=== PATIENT | female | born 1960 | race Caucasian/White ===

== ENCOUNTER 2023-10-16 00:57 | Emergency (ER) | payer OTHER, SELFPAY ==
[2023-10-16] VITALS (10 sets, daily range): BP systolic 111–134; BP diastolic 55–83; PULSE 67–89; RESP 18–28; TEMP 36.2–36.9; O2SAT 91–97; BMI 28.3
--- NOTE | 2023-10-16 01:02 | EKG_ITS ---
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
--- NOTE | 2023-10-16 01:03 | ED.CHESTPAIN ---
HPI - Chest Pain General Chief Complaint: Chest Pain Stated Complaint: CP x2hrs Time Seen by Provider: 10/16/23 00:57 History of Present Illness HPI narrative: 63-year-old female with PMH CAD s/p stent 2021 presents by EMS from home for central chest tightness for 2 hours. EMS states that patient had some alcoholic drinks and marijuana with her sister around dinner, subsequently went to bed. Shortly after patient began to experience midepigastric pain with several episdoes of vomiting and chest tightness. They state that when they arrived the patient was not very coherent and may possibly have had a [facility]opal [facility] EN route they gave 324 of aspirin, 50 mcg of fentanyl, and 1 sublingual nitroglycerin. Patient complaining of central substernal chest tightness on arrival to the emergency department. Patient History Social History Smoking Status: Current every day smoker Exam Initial Vital Signs Initial Vital Signs: Vital Signs Pulse Rate 75 10/16/23 01:02 Respiratory Rate 28 H 10/16/23 01:02 Blood Pressure 131/63 10/16/23 01:02 Pulse Oximetry 93 10/16/23 01:02 Const: Awake, alert, nontoxic appearing Cardiac: regular rate, regular rhythm RESP: unlabored, clear bilaterally, no wheezing GI: Soft, nontender, nondistended Skin: Warm, Dry, intact, no rashes Neuro: AO x3, CN II-XII grossly intact, moves all extremities Course Orders Ordered: Discontinued Medications Albuterol/Ipratropium (Albuterol/Ipratropium 3 Ml Ampul) 3 ml INH NOW ONE Stop: 10/16/23 01:03 Last Admin: 10/16/23 01:16 Dose: 3 ml Documented By: SEVERO Potassium Chloride (Potassium Chloride 20 Meq Tab) 40 meq PO NOW ONE Stop: 10/16/23 01:35 Last Admin: 10/16/23 01:47 Dose: 40 meq Documented By: Vital Signs Vital signs: Vital Signs - 8 hr 10/16/23 01:02 10/16/23 01:02 10/16/23 01:10 Temperature 97.2 F L Pulse Rate 75 83 Respiratory Rate 28 H 18 Blood Pressure 131/63 131/63 Pulse Oximetry 93 95 Oxygen Delivery Method Room Air Oxygen Flow Rate 10/16/23 01:30 10/16/23 01:35 10/16/23 02:00 Temperature Pulse Rate 85 67 89 Respiratory Rate 22 24 22 Blood Pressure Pulse Oximetry 92 97 94 Oxygen Delivery Method Room Air Aerosol Mask Oxygen Flow Rate 8 10/16/23 02:30 10/16/23 03:00 Temperature Pulse Rate 89 85 Respiratory Rate 25 H 20 Blood Pressure 131/83 Pulse Oximetry 97 91 Oxygen Delivery Method Oxygen Flow Rate MDM - Chest Pain Differential Diagnosis Differential diagnosis: Likely pneumothorax, costochondritis and chest pain Lab Data 10/16/23 01:00 10/16/23 01:00 Labs: Lab Results 10/16/23 10/16/23 Range/Units 01:00 03:00 WBC 15.5 H (4.5-11.0) X10^3/uL RBC 5.40 H (4.0-5.2) X10^6/uL Hgb 14.1 (12.0-16.0) g/dL Hct 42.1 (36-46) % MCV 77.9 L (80-100) fL MCH 26.2 (26-34) PG MCHC 33.6 (30-36) % RDW 15.1 H (11.6-14.8) % Plt Count 163 (150-400) X10^3/uL Neut % (Auto) 71.2 (50-75) % Lymph % (Auto) 17.7 L (25-40) % Saunders % (Auto) 7.5 (3-14) % Eos % (Auto) 2.8 (2-4) % Baso % (Auto) 0.8 (0-2) % Neut # (Auto) 17992 H (2060-3194) /uL Lymph # (Auto) 2700 (5427-2887) /uL Saunders # (Auto) 1200 H (0-900) /uL Eos # (Auto) 400 (0-450) /uL Baso # (Auto) 100 (0-100) /uL PT 12.9 H (9.4-12.5) SECONDS INR 1.1 (0.9-1.3) Sodium 137 (137-145) mmol/L Potassium 2.9 L (3.4-5.1) mmol/L Chloride 107 (98-107) mmol/L Carbon Dioxide 23 (22-32) mmol/L BUN 14 (7-17) mg/dL Creatinine 0.70 (0.52-1.04) mg/dL Estimated GFR > 60 (>60) mL/min BUN/Creatinine Ratio 20.0 (6-22) Glucose 196 H (80-110) mg/dL Calcium 9.0 (8.4-10.2) mg/dL Total Bilirubin 0.5 (0.2-1.3) mg/dL AST 32 (14-36) IU/L ALT 43 H (<35) IU/L Alkaline Phosphatase 76 (38-126) U/L Total Creatine Kinase 135 (30-135) U/L Troponin I < 0.012 < 0.012 (0.01-0.034) ng/mL NT-Pro-B Natriuret Pep 99 (<125) pg/mL Total Protein 7.8 (6.3-8.2) g/dL Albumin 4.3 (3.5-5.0) g/dL Globulin 3.5 (1.7-4.1) g/dL Albumin/Globulin Ratio 1.2 (1.0-2.8) Lipase 161 (23-300) U/L Ethyl Alcohol < 10 ( - 10) mg/dL Imaging Data Chest x-ray: Radiologist's Impression: PROCEDURE: XR CHEST 1V INDICATIONS: central chest tightness TECHNIQUE: One view of the chest was acquired. COMPARISON: None. FINDINGS: Surgical changes and devices: None. Lungs and pleura: Mildly low lung volumes bilaterally, which accentuates cardiac size and pulmonary markings. No acute consolidation. No pleural effusions or pneumothorax. Mediastinum: Mediastinal contours appear normal. Heart size is normal. Bones and chest wall: No suspicious bony lesions. Overlying soft tissues appear unremarkable. IMPRESSION: No acute cardiopulmonary abnormality is seen. Approved by: Jaylen Inman M.D. on 10/16/2023 at 1:26 ECG Data Interpretation: Normal sinus rhythm 84 beats per minute, normal GA, no ST T wave changes, no STEMI. Voltage criteria for LVH MDM Narrative Medical decision making narrative: Chest pain beginning prior to arrival. Exam relatively unremarkable. EMS states that patient has seemed to be confused on their arrival to the residents were patient was stay, however she is alert and oriented upon arrival to the emergency department. Initial EKG sinus rhythm without obvious ischemic findings. Laboratory work and imaging to be obtained. Patient offered a DuoNeb treatment, which she accepted Laboratory work so far shows hypokalemia with potassium 2.9, oral repletion provided. Initial troponin undetectable. Patient resting comfortably in ED bed, she states that she had multiple episodes of emesis at symptom onset prior to EMS arrival, however she now feels much improved and no longer has any chest tightness. 2 hour troponin level ordered. 2 hour troponin level again undetectable. Patient has had no further symptoms since arrival to the emergency department. Discharge Plan Departure Patient Disposition: Home Clinical Impression: Chest pain Instructions: DI for Atypical Chest Pain Activity Restrictions/Additional Instructions: Your laboratory work today showed that you have low potassium, however your heart enzymes are normal and your EKG does not indicate a heart attack. I recommend following up with your primary care doctor when you go back home. If you have any new or worsening symptoms in please feel free to be re-evaluated in the emergency department. Referrals: Yesi Garza [Other] Stand Alone Forms: Patient Portal/API
[2023-10-16] MEDS: ALBUTEROL/IPRATROPIUM 3 ML AMPUL INH (01:16)
[2023-10-16 01:20] LABS: Add Manual Diff / Slide Review NO; Basophils Absolute Auto 100 /uL (0-100); Basophils Percent Auto 0.8 % (0-2); Eosinophils Absolute Auto 400 /uL (0-450); Eosinophils Percent Auto 2.8 % (2-4); Hematocrit 42.1 % (36-46); Hemoglobin 14.1 g/dL (12.0-16.0); Lymphocytes Absolute Auto 2700 /uL (1100-4500); Lymphocytes Percent Auto 17.7 % (25-40); Mean Corpuscular HGB Conc 33.6 % (30-36); Mean Corpuscular Hemoglobin 26.2 PG (26-34); Mean Corpuscular Volume 77.9 fL (80-100); Monocytes Absolute Auto 1200 /uL (0-900); Monocytes Percent Auto 7.5 % (3-14); Neutrophils Absolute Auto 11100 /uL (1500-7000); Neutrophils Percent Auto 71.2 % (50-75); Platelet Count 163 X10^3/uL (150-400); Red Cell Distribution Width 15.1 % (11.6-14.8); White Blood Cell Count 15.5 X10^3/uL (4.5-11.0)
[2023-10-16 01:22] LABS: INR 1.1 (0.9-1.3); Prothrombin Time 12.9 SECONDS (9.4-12.5)
[2023-10-16 01:25] LABS: Lipase 161 U/L (23-300)
[2023-10-16 01:27] LABS: Alanine Aminotransferase 43 IU/L (<35); Albumin 4.3 g/dL (3.5-5.0); Albumin Globulin Ratio 1.2 (1.0-2.8); Alkaline Phosphatase 76 U/L (38-126); Aspartate Aminotransferase 32 IU/L (14-36); Bilirubin Total 0.5 mg/dL (0.2-1.3); Blood Urea Nitrogen 14 mg/dL (7-17); Carbon Dioxide 23 mmol/L (22-32); Chloride 107 mmol/L (98-107); Creatine Kinase 135 U/L (30-135); Estimated Glomerular Filt Rate > 60 mL/min (>60); Globulin 3.5 g/dL (1.7-4.1); Glucose 196 mg/dL (80-110); HEMOLYSIS 19 (0-50); Potassium 2.9 mmol/L (3.4-5.1); Sodium 137 mmol/L (137-145); Total Protein 7.8 g/dL (6.3-8.2)
[2023-10-16 01:38] LABS: NT-proBNP (BNP-Adult 18+) 99 pg/mL (<125); Troponin I < 0.012 ng/mL (0.01-0.034)
[2023-10-16 01:47] LABS: Ethanol (ETOH) < 10 mg/dL
[2023-10-16] MEDS: POTASSIUM CHLORIDE 20 MEQ TAB 40 MEQ PO (01:47)
[2023-10-16 03:31] LABS: Troponin I < 0.012 ng/mL (0.01-0.034)
== END 2023-10-16 04:03 | disposition home or self-care (01) ==
PROVIDERS: Emergency Provider Emergency Medicine
DX: R07.9 Chest pain, unspecified (principal); R11.10 Vomiting, unspecified; Z95.5 Presence of coronary angioplasty implant and graft
CPT/HCPCS: 71045; 80053; 80320; 82550; 83690; 83880; 84484; 85025; 85610; 93005; 94640; 99283; 99284